=== PATIENT | male | born 1960 | race Caucasian/White ===

== ENCOUNTER → 2019-10-03 14:34 | Outpatient (CLI) | payer MEDICARE, SELFPAY ==
[2019-10-05 14:46] LABS: Covid-19 Nasal PCR Sendout Lex Not Dectected
== END ==
PROVIDERS: PCP Emergency Medicine; Visit Provider Emergency Medicine
DX: Z03.818 Encounter for observation for suspected exposure to other biological agents ruled out (principal)
CPT/HCPCS: U0004

== ENCOUNTER → 2019-10-23 12:11 | Outpatient (CLI) | payer MEDICARE, SELFPAY | PROVIDERS: Visit Provider Emergency Medicine | DX: Z03.818 Encounter for observation for suspected exposure to other biological agents ruled out (principal) | CPT/HCPCS: U0003 ==

== ENCOUNTER → 2020-07-08 10:16 | Outpatient (POV) | payer MEDICARE, SELFPAY | PROVIDERS: Visit Provider Dermatology | DX: Z00.00 Encounter for general adult medical examination without abnormal findings (principal) ==

== ENCOUNTER → 2020-08-05 08:56 | Outpatient (POV) | payer MEDICARE, SELFPAY | PROVIDERS: Visit Provider Dermatology | DX: Z00.00 Encounter for general adult medical examination without abnormal findings (principal) ==

== ENCOUNTER → 2020-11-25 09:43 | Outpatient (POV) | payer MEDICARE, SELFPAY | PROVIDERS: Visit Provider Dermatology | DX: Z00.00 Encounter for general adult medical examination without abnormal findings (principal) ==

== ENCOUNTER → 2020-12-30 14:17 | Outpatient (POV) | payer MEDICARE, SELFPAY | PROVIDERS: Visit Provider Dermatology | DX: Z00.00 Encounter for general adult medical examination without abnormal findings (principal) ==

== ENCOUNTER 2021-02-20 10:03 | Emergency (ER) | payer MEDICARE, SELFPAY ==
[2021-02-20] VITALS (13 sets, daily range): BP systolic 121–147; BP diastolic 72–83; PULSE 44–57; RESP 18; TEMP 36.8; O2SAT 85–97; BMI 26.6
[2021-02-20 10:45] LABS: Basophils # 0.1 K/mm3 (0-0.2); Basophils % 0.7 % (0.1-2.0); Eosinophils # 0.2 K/mm3 (0.0-0.4); Eosinophils % 1.8 % (0.1-12.0); Hematocrit 39.5 % (42.0-52.0); Hemoglobin 13.3 g/dL (14.1-18.0); Lymphocytes # 1.2 K/mm3 (0.7-4.5); Lymphocytes % 11.9 % (10-50); Mean Corpuscular HGB Conc 33.7 g/dL (31.8-35.4); Mean Corpuscular Hemoglobin 29.3 pg (27.0-31.2); Mean Corpuscular Volume 87.1 fl (80-94); Mean Platelet Volume 8.7 fl (7.4-10.4); Monocytes # 0.6 K/mm3 (0.1-1.0); Monocytes % 6.1 % (1.7-9.3); Neutrophils # 8.1 K/mm3 (1.8-7.8); Neutrophils % 79.5 % (37.0-80.0); Platelet Count 233 K/mm3 (142-424); Red Blood Count 4.53 M/mm3 (4.60-6.20); Red Cell Distribution Width 14.2 % (11.5-17.5); White Blood Count 10.2 K/mm3 (4.8-10.8)
[2021-02-20 10:49] LABS: Chloride 105 mmol/L (98-107)
[2021-02-20 10:50] LABS: Potassium 3.1 mmoL/L (3.5-5.1); Sodium 142 mmol/L (136-145)
[2021-02-20 10:52] LABS: Alanine Aminotransferase 14 U/L (12-78); Amylase 43 U/L (30-110); Aspartate Amino Transferase 26 U/L (17-59); Blood Urea Nitrogen 22 mg/dl (9-20); Creatinine Clearance Estimated 48 mL/min (50-200); Estimated Glomerular Filt Rate 39 ml/min (>60); GFR (African American) 47 ML/MIN (>60)
[2021-02-20 10:53] LABS: Albumin Level 3.9 g/dl (3.5-5.0); Albumin/Globulin Ratio 1.4 (1.1-1.8); Alkaline Phosphatase 121 U/L (38-126); Anion Gap 11.1 mEq/L (5-15); Bilirubin,Total 0.5 mg/dl (0.2-1.3); Calcium 7.5 mg/dl (8.4-10.2); Carbon Dioxide 29 mmol/L (22.0-30.0); Globulin 2.7 g/dL (1.3-3.2); Glucose 141 mg/dl (74-100); Total Protein,Serum 6.6 g/dl (6.3-8.2)
[2021-02-20 10:54] LABS: Lipase 68 U/L (23-300)
[2021-02-20 10:58] LABS: Ethyl Alcohol < 10 mg/dl (0-10)
[2021-02-20 13:12] LABS: VBG Base Excess -1.4 mmol/L (-2.4-2.3); VBG HCO3 24.2 mmol/L (23-30); VBG Oxygen Saturation 88.7 % (50-70); VBG PCO2 44.6 mmol/L (35-51); VBG PH 7.35 mmol/L (7.31-7.41); VBG PO2 60.2 mmol/L (28-40); VBG Total CO2 25.6 mmol/L (23-27)
[2021-02-20 13:23] LABS: Acetone, Serum (Rapid) None Detected (None Detect)
--- NOTE | 2021-02-20 16:20 | [facility].EDGENADL ---
ED Disposition Clinical Impression: Nausea Vomiting Qualifiers: Migraine intractability: nonintractable Disposition: Home, Self-Care Condition on Discharge: Good Additional Instructions: Note that your kidney function today was abnormal. Your urinalysis was also abnormal. Please follow-up to ensure improvement and resolution with your primary care doctor within 7 days. If your condition worsens or any other concerns arise, please return to the emergency department for reassessment. Referrals: Colton Collins MD [Primary Care Provider] - - Critical Care Critical Care Time: No Attestation: On 02/20/21, the high probability of a clinically significant, sudden or life threatening deterioration of the following system(s) required my full and direct attention, intervention and personal management. The time I documented below is in addition to time spent performing reported procedures but includes the following listed in this critical care notation. Medical Decision Making - Medical Records Medical records reviewed: Yes: I reviewed the patient's medical records. - Domingo Inquiry Pt receiving controlled substance: No Vital Signs: 02/20/21 10:04 02/20/21 10:30 02/20/21 11:00 Temperature 98.3 F Temperature Source Oral Pulse Rate 44 L Pulse Rate [Left Radial] 53 L Respiratory Rate 18 Blood Pressure 144/82 H Blood Pressure [Left Arm] 142/83 H Blood Pressure Mean 114 Blood Pressure Mean [Left Arm] 102 Blood Pressure Source [Left Arm] Automatic Cuff Blood Pressure Position [Left Arm] Sitting 02 Sat by Pulse Oximetry 97 87 L Oxygen Delivery Method Room Air 02/20/21 11:30 02/20/21 12:00 02/20/21 12:30 Temperature Temperature Source Pulse Rate 52 L 55 L 50 L Pulse Rate [Left Radial] Respiratory Rate Blood Pressure 147/80 H Blood Pressure [Left Arm] Blood Pressure Mean 102 Blood Pressure Mean [Left Arm] Blood Pressure Source [Left Arm] Blood Pressure Position [Left Arm] 02 Sat by Pulse Oximetry 90 L 89 L 89 L Oxygen Delivery Method 02/20/21 13:01 02/20/21 13:30 02/20/21 14:00 Temperature Temperature Source Pulse Rate 50 L 53 L 52 L Pulse Rate [Left Radial] Respiratory Rate Blood Pressure 121/72 Blood Pressure [Left Arm] Blood Pressure Mean 97 Blood Pressure Mean [Left Arm] Blood Pressure Source [Left Arm] Blood Pressure Position [Left Arm] 02 Sat by Pulse Oximetry 89 L 87 L 85 L Oxygen Delivery Method 02/20/21 14:30 02/20/21 15:00 02/20/21 15:30 Temperature Temperature Source Pulse Rate 57 L 52 L 52 L Pulse Rate [Left Radial] Respiratory Rate Blood Pressure Blood Pressure [Left Arm] Blood Pressure Mean Blood Pressure Mean [Left Arm] Blood Pressure Source [Left Arm] Blood Pressure Position [Left Arm] 02 Sat by Pulse Oximetry 89 L 89 L 91 L Oxygen Delivery Method - Lab Data Lab results reviewed: Yes: I reviewed the patient's lab results. Lab Results 02/20/21 10:34: WBC 10.2, RBC 4.53 L, Hgb 13.3 L, Hct 39.5 L, MCV 87.1, MCH 29.3, MCHC 33.7, RDW 14.2, Plt Count 233, MPV 8.7, Neut % (Auto) 79.5, Lymph % (Auto) 11.9, [place] % (Auto) 6.1, Eos % (Auto) 1.8, Baso % (Auto) 0.7, Neut # (Auto) 8.1 H, Lymph # (Auto) 1.2, [place] # (Auto) 0.6, Eos # (Auto) 0.2, Baso # (Auto) 0.1 02/20/21 10:34: Sodium 142, Potassium 3.1 L, Chloride 105, Carbon Dioxide 29, Anion Gap 11.1, BUN 22 H, Creatinine 1.80 H, Estimated Creat Clear 48, Estimated GFR 39 L, Est GFR ( Amer) 47 L, Glucose 141 H, Calcium 7.5 L, Total Bilirubin 0.5, AST 26, ALT 14, Alkaline Phosphatase 121, Total Protein 6.6, Albumin 3.9, Globulin 2.7, Albumin/Globulin Ratio 1.4, Amylase 43 02/20/21 10:34: Lipase 68 02/20/21 10:34: Plasma/Serum Alcohol < 10 02/20/21 10:34: Acetone Level None detected 02/20/21 11:07: Lactate 1.0 02/20/21 12:57: VBG pH 7.35, VBG pCO2 44.6, VBG pO2 60.2 H, VBG HCO3 24.2, VBG Total CO2 25.6, VBG
[2021-02-20 16:45] LABS: Microscopic, Urine URINE MICROSCOPIC (MICROSCOPIC)
[2021-02-20 17:16] LABS: Appearance,Urine CLOUDY (Clear); Bilirubin,Urine Negative (Negative); Blood, Urine Negative (Negative); Color,Urine YELLOW (Yellow); Glucose,Urine (UA) Negative (Negative); Ketones,Urine Negative (Negative); Leukocyte Esterase,Urine 2+ (Negative); Nitrate,Urine Negative (Negative); Protein,Urine 1+ (Negative); Urobilinogen,Urine 0.2 EU/dl (0.2)
[2021-02-20 17:19] LABS: Bacteria,Urine Trace /lpf
[2021-02-20 17:24] LABS: Benzodiazepines Screen,Urine Negative ng/ml (<200)
[2021-02-20 17:25] LABS: Amphetamine/Metha Screen,Urine Negative ng/ml (<1000); Barbiturates Screen,Urine Negative ng/ml (<200)
[2021-02-20 17:26] LABS: Cannabinoid Screen,Urine Negative ng/ml (<50)
[2021-02-20 17:27] LABS: Cocaine Screen,Urine Negative ng/ml (<300); Methadone Screen,Urine Negative ng/ml (<300)
[2021-02-20 17:28] LABS: Opiate Screen,Urine Negative ng/ml (<300)
[2021-02-20 17:29] LABS: Phencyclidine Screen,Urine Negative ng/ml (<25)
== END 2021-02-20 19:11 | disposition home or self-care (01) ==
PROVIDERS: Emergency Provider Emergency Medicine; PCP Emergency Medicine
DX: R11.2 Nausea with vomiting, unspecified (principal); E11.9 Type 2 diabetes mellitus without complications; G43.709 Chronic migraine without aura, not intractable, without status migrainosus; I10 Essential (primary) hypertension; F41.8 Other specified anxiety disorders; E78.5 Hyperlipidemia, unspecified; K21.9 Gastro-esophageal reflux disease without esophagitis; F17.210 Nicotine dependence, cigarettes, uncomplicated; Z79.899 Other long term (current) drug therapy
CPT/HCPCS: 80053; 80305; 81001; 82009; 82150; 82803; 83605; 83690; 85025; 87086; 96365; 96367; 99283; J2405